=== PATIENT | female | born 1950 | race Caucasian/White ===

== ENCOUNTER 2022-08-07 11:08 | Emergency (ER) | payer OTHER, MEDICARE ==
[~2022-08-07] VITALS: Ht 175.3 cm; Wt 81.7 kg
== END 2022-08-07 13:02 | disposition home or self-care (01) ==
LOC: ED 11:08
DX: S00.83XA Contusion of other part of head, initial encounter (principal); S00.31XA Abrasion of nose, initial encounter; W10.9XXA Fall (on) (from) unspecified stairs and steps, initial encounter; Y99.0 Civilian activity done for income or pay
CPT/HCPCS: 70450; 99283-25